=== PATIENT | female | born 1975 | race Caucasian/White ===

== ENCOUNTER → 2021-03-09 00:31 | Outpatient (CLI) | payer OTHER, SELFPAY ==
[2021-03-09 21:52] LABS: SARS-CoV-2 RNA PCR Negative
== END ==
PROVIDERS: Visit Provider Internal Medicine Gastroenterology
DX: Z01.812 Encounter for preprocedural laboratory examination (principal); Z20.822 Contact with and (suspected) exposure to COVID-19
CPT/HCPCS: C9803; U0003; U0005

== ENCOUNTER 2021-03-11 00:12 | Day surgery (SDC) | payer OTHER, SELFPAY ==
[2021-02-26 14:00] VITALS: BMI 29.2
[2021-03-11 08:15] VITALS: BP 116/81; PULSE 90; RESP 18; TEMP 36.1; O2SAT 99
[2021-03-11] MEDS: LACTATED RINGERS 1,000 ML 150 ML IV CONT (08:22)
--- NOTE | 2021-03-11 08:44 | P.PNAN_ITS ---
Anes - Initial Pre Proc Eval Procedure: Operation Date: 03/11/21 09:00 Proposed Procedures p Screening Colonoscopy - Ramon Bailey MD Date/Time: 03/11/21 08:44 Surgeon: Ramon Bailey MD Pre Op Diagnosis: neoplasm screening Patient Data Age: 45 Gender: F Height: 5 ft 6 in Weight: 89 kg Last Vital Signs Temp 97.0 F L 03/11/21 08:15 Pulse 90 03/11/21 08:15 Resp 18 03/11/21 08:15 BP 116/81 03/11/21 08:15 Pulse Ox 99 03/11/21 08:15 Allergies Allergy/AdvReac Type Severity Reaction Status Date / Time No Known Allergies Allergy Verified 03/11/21 08:14 Home Medications Medication Instructions Recorded Confirmed Type sertraline 100 mg PO DAILY 02/26/21 02/26/21 History Patient hx anesthesia problems: none Family hx anesthesia problems: none [facility] Past Medical History Medical History (Updated 03/11/21 @ 08:43 by Jose Bhat MD) Hypothyroid Social History Social History Alcohol intake: current Drinks per week: 2 Substance use: current Substance use type: marijuana Last use: 02/05/2021 Living arrangements: with family Spiritual care concerns: No Anes - Eval Final PreProcedure Day of Procedure 03/11/21 08:44 Patient weight: overweight Heart: regular rate and rhythm Lungs: clear to auscultation Airway: Mallampati scale class II Neurological: alert and oriented Last oral intake: >/= 8 hours ASA classification: II Emergent: no Anesthetic plan: proceed Anesthesia type and monitoring: general GIVS and standard monitoring Informed Consent: The patient's anesthetic plan and its attendant risks and benefits were discussed with the patient/family/POA. Questions were solicited and answers provided to the satisfaction of the patient/family/POA.
--- NOTE | 2021-03-11 08:44 | PM.HPGS ---
History of Present Illness History of Present Illness Consent: Risks, benefits, and alternatives have been discussed and questions answered. Patient agrees to proceed with procedure. Chief complaint: neoplasm screening Narrative: Marla Condon is a 45 year old female here for first screening colonoscopy Review of Systems Constitutional: Constitutional: Denies headache(s) and Denies weakness Eyes: Eyes: Denies blurry vision ENT: Reports Normal hearing present, Denies headache(s) and Denies neck pain Cardiovascular: Cardiovascular: Denies chest pain and Denies dyspnea Respiratory: Respiratory: Denies dyspnea Gastrointestinal: Gastrointestinal: Reports no additional gastrointestinal complaints Genitourinary: Genitourinary: Denies dysuria Musculoskeletal: Musculoskeletal: Denies neck pain Integumentary/Breasts: Skin/Breast: Denies dry skin Neurologic: Reports Normal hearing present, Denies headache(s) and Denies weakness Psychiatric: Psychiatric: Denies anxiety Endocrine: Endocrine: Denies change in body appearance Hematologic/Lymphatic: Hematologic/Lymphatic: Denies easy bleeding Allergic/Immunologic: Allergic/Immunologic: Denies urticaria PMF Past Medical History Medical History (Updated 03/11/21 @ 08:45 by Ramon Bailey MD) Colon cancer screening Hypothyroid Social History Social History Alcohol intake: current Drinks per week: 2 Substance use: current Substance use type: marijuana Last use: 02/05/2021 Living arrangements: with family Spiritual care concerns: No Meds Home Medications and Allergies Home Medications Medication Instructions Recorded Confirmed Type sertraline 100 mg PO DAILY 02/26/21 02/26/21 History Allergies Allergy/AdvReac Type Severity Reaction Status Date / Time No Known Allergies Allergy Verified 03/11/21 08:14 Vital Signs Vital Signs - 24 hr 03/11/21 08:15 Temperature 97.0 F L Pulse Rate 90 Respiratory Rate 18 Blood Pressure 116/81 Pulse Oximetry 99 Exam Const: General: comfortable and no acute distress HENMT: General nose exam: Normal nares present Eyes: General: appearance normal, both eyes and all related structures Neck: Neck: no JVD Resp: Auscultation: clear to auscultation bilaterally Cardio: Rate: regular rate Rhythm: regular rhythm GI: Inspection: non-distended GI Palp: Yes Soft to palpation Skin: General skin exam: normal color Neuro: General: gait normal Speech: normal speech Extrem: General: normal to inspection Psych: Mental Status: mental status grossly normal Assessment and Plan Assessment and plan (1) Colon cancer screening: Code(s): Z12.11 - Encounter for screening for malignant neoplasm of colon Status: Acute Assessment and Plan: colonoscopy
[2021-03-11 09:08] VITALS: BP 98/64; PULSE 85; RESP 19; O2SAT 99
[2021-03-11 09:18] VITALS: BP 106/68; PULSE 78; RESP 16; O2SAT 98
[2021-03-11 09:28] VITALS: BP 110/72; PULSE 71; RESP 17; O2SAT 96
== END 2021-03-11 09:31 | disposition home or self-care (01) ==
PROVIDERS: PCP Registered Nurse; Visit Provider Internal Medicine Gastroenterology
PROC: 0DJD8ZZ Inspection of Lower Intestinal Tract, Via Natural or Artificial Opening Endoscopic (ICD-10-PCS; CPT 45378; principal; 2021-03-11 09:00)
DX: Z12.11 Encounter for screening for malignant neoplasm of colon (principal); K64.8 Other hemorrhoids; E03.9 Hypothyroidism, unspecified; F12.90 Cannabis use, unspecified, uncomplicated
CPT/HCPCS: 45378; C9803; J2704; J7120; U0003; U0005

== ENCOUNTER → 2023-10-19 12:52 | Outpatient (CLI) | payer BC, SELFPAY ==
--- NOTE | ~2023-10-19 | MR_ITS ---
EXAMINATION: MR foot LT wo con DATE: 10/19/2023 13:58 INDICATION: Peroneal tendinitis TECHNIQUE: Magnetic resonance imaging (MRI) of the left foot excluding the toes in the posterior calc aneus performed without intravenous contrast. Sequences included sagittal T1-weighted FSE, sagittal f luid sensitive FSE STIR, coronal PD-weighted FS FSE, coronal T1-weighted FSE, axial PD-weighted FS FS E, and axial PD-weighted FSE. A marker is placed over the site of maximal pain at the lateral midfoot . COMPARISON: None FINDINGS: Bone alignment is normal. Normal bone marrow signal throughout with no fracture or pathologic marrow replacing process. Joint spaces appear normal. The visualized portions of the anterior extensor tendo ns and the posterior flexor tendons about the medial and lateral aspects of the ankle and hindfoot ar e normal. The medial and lateral stabilizing ligaments of the ankle are normal. The Lisfranc ligament complex is normal. Intrinsic musculature of the foot appears normal with no atrophy or abnormal sign al. There is focal mild subcutaneous edema overlying the dorsal aspect of the base of the fourth and fifth metatarsals. There is a multilobulated ganglion cyst arising from the anterior aspect of the ti biotalar joint which extends a short distance cephalad along the deep margin of the extensor digitoru m longus and extensor hallucis longus tendons. The cyst is approximately 2.4 cm craniocaudally and me asures up to 1.8 x 0.8 cm maximal transaxial dimensions. No joint effusions or other abnormal fluid c ollections. IMPRESSION: 1. Focal edema in the subcutaneous fat overlying the dorsal aspect of the base of the fourth and fift h metatarsals which is of indeterminate etiology. No acute osseous abnormality with normal ligaments and tendons in the visualized left foot. 2. Multilobulated ganglion cyst arising anteriorly from the ankle joint. Reviewed, dictated and finalized at location A. [employer] IMPRESSION: 1. Focal edema in the subcutaneous fat overlying the dorsal aspect of the base of the fourth and fifth metatarsals which is of indeterminate etiology. No acut e osseous abnormality with normal ligaments and tendons in the visualized left foot. 2. Multilobulated ganglion cyst arising anteriorly from the ankle joint.
== END ==
PROVIDERS: PCP Family Medicine Sports Medicine; Visit Provider Family Medicine Sports Medicine
DX: M67.88 Other specified disorders of synovium and tendon, other site (principal); M84.375A Stress fracture, left foot, initial encounter for fracture
CPT/HCPCS: 73718